=== PATIENT | female | born 2000 | race Caucasian/White ===

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

== ENCOUNTER → 2019-05-01 | Outpatient (REF) | payer OTHER ==
[2019-05-01 13:51] LABS: BASO % 0.8 % (0.0-1.0); EOS # 0.1 10^3/uL (0.0-0.5); EOS % 1.2 % (0.0-3.0); HEMATOCRIT 44.5 % (36.0-47.0); HEMOGLOBIN 14.7 g/dl (12.0-15.5); LYMPH # 1.3 10^3/uL (1.5-5.0); LYMPH % 26.2 % (24.0-44.0); MEAN CORPUSCULAR HEMOGLOBIN 31.5 pg (27.0-33.0); MEAN CORPUSCULAR VOLUME 95.5 fl (80.0-96.0); MONO # 0.4 10^3/uL (0.0-0.8); MONO % 8.2 % (0.0-5.0); NEUTROPHILS # 3.1 10^3/uL (1.5-8.5); NEUTROPHILS % 63.4 % (36.0-66.0); PLATELET COUNT, AUTOMATED 272 10^3/uL (150-450); RED BLOOD COUNT 4.66 10^6/uL (4.00-5.40); WHITE BLOOD COUNT 4.9 10^3/uL (4.0-10.0)
[2019-05-01 13:56] LABS: ALBUMIN 4.5 GM/DL (3.2-5.2); ALT/SGPT 17 U/L (12-78); BILIRUBIN,TOTAL 0.4 MG/DL (0.2-1.0); BLOOD UREA NITROGEN 15 MG/DL (7-18); C REACTIVE PROTEIN QUANTITATIV < 0.30 MG/DL (0.00-0.30); CALCIUM LEVEL 9.4 MG/DL (8.5-10.1); CARBON DIOXIDE LEVEL 30 MEQ/L (21-32); CHLORIDE LEVEL 105 MEQ/L (98-107); CREATININE FOR GFR 0.71 MG/DL (0.55-1.30); GLUCOSE, FASTING 89 MG/DL (70-100); POTASSIUM SERUM 4.2 MEQ/L (3.5-5.1); SODIUM LEVEL 139 MEQ/L (136-145); TOTAL PROTEIN 8.3 GM/DL (6.4-8.2)
[2019-05-01 14:04] LABS: THYROID PEROXIDASE ANTIBODY < 28.0 U/ML (<60.0)
[2019-05-01 14:17] LABS: ERYTHROCYTE SEDIMENTATION RATE 3 mm/hr (0-20)
[2019-05-01 18:44] LABS: TOTAL PROTEIN,RANDOM URINE 16.4 MG/DL (0.0-12.0)
== END ==
LOC: M SFHCRHEU 09:37
PROVIDERS: ATTEND Internal Medicine
DX: R76.8 Other specified abnormal immunological findings in serum (principal); I73.00 Raynaud's syndrome without gangrene; K90.0 Celiac disease

== ENCOUNTER → 2019-07-31 | Outpatient (REF) | payer OTHER | LOC: M LABDRWAD 16:56 | DX: K90.0 Celiac disease (principal) ==

== ENCOUNTER → 2020-11-20 | Outpatient (REF) | payer OTHER | LOC: M LAB REF 15:38 | PROVIDERS: ATTEND Physician Assistant | DX: R05.9 Cough, unspecified (principal) ==

== ENCOUNTER → 2021-01-30 | Outpatient (CLI) | payer BC, OTHER ==
--- NOTE | 2021-01-30 09:04 | PFTRPT ---
Height: 73.00 Inches Weight: 160.00 Lbs BSA: 1.96 Diagnosis: I73.00 DATE: 01/30/2021 ORDERING PHYSICIAN: Corina Marcus MD Pre and post bronchodilator studies have excellent technical quality. Forced vital capacity is normal. FEV1 is in proportion. Obstructive index is therefore normal. Expiratory limit of the flow-volume loop is normal. No significant bronchodilator response is identified. Total lung capacity is normal. Residual volume is in proportion. Diffusing capacity is normal. No hemoglobin available for correction. Airway resistance and conductance are normal. IMPRESSION: Normal study. MTDD
== END ==
LOC: M CARPUL 08:36
PROVIDERS: ATTEND Internal Medicine Rheumatology
DX: R76.8 Other specified abnormal immunological findings in serum (principal)

== ENCOUNTER → 2021-06-27 | Outpatient (REF) | payer OTHER ==
[2021-06-27 12:18] LABS: APPEARANCE, URINE CLEAR (CLEAR); BACTERIA, URINE AUTO NEGATIVE (NEGATIVE); BILIRUBIN, URINE AUTO NEGATIVE (NEGATIVE); BLOOD, URINE BLOOD NEGATIVE (NEGATIVE); COLOR, URINE STRAW (YELLOW); GLUCOSE, URINE (UA) AUTO NEGATIVE (NEGATIVE); KETONE, URINE AUTO NEGATIVE (NEGATIVE); LEUKOCYTE ESTERASE, URINE AUTO NEGATIVE (NEGATIVE); NITRITE, URINE AUTO NEGATIVE (NEGATIVE); PROTEIN, URINE AUTO NEGATIVE (NEGATIVE); RBC, URINE AUTO 0 /HPF (0-3); SPECIFIC GRAVITY URINE AUTO 1.003 (1.002-1.035); SQUAMOUS EPITHELIAL CELL UR AU 0 /HPF (0-6); UROBILINOGEN, URINE AUTO 0.2 mg/dL (0.0-2.0); WBC, URINE AUTO 0 /HPF (0-3)
[2021-06-27 12:21] LABS: BASO % 0.7 % (0.0-1.0); EOS # 0.1 10^3/uL (0.0-0.5); HEMATOCRIT 42.6 % (36.0-47.0); HEMOGLOBIN 14.5 g/dl (12.0-15.5); LYMPH # 1.3 10^3/uL (1.5-5.0); LYMPH % 21.7 % (24.0-44.0); MEAN CORPUSCULAR HEMOGLOBIN 32.7 pg (27.0-33.0); MEAN CORPUSCULAR VOLUME 95.9 fl (80.0-96.0); MONO # 0.7 10^3/uL (0.0-0.8); NEUTROPHILS % 65.4 % (36.0-66.0); PLATELET COUNT, AUTOMATED 330 10^3/uL (150-450); RED BLOOD COUNT 4.44 10^6/uL (4.00-5.40); WHITE BLOOD COUNT 6.1 10^3/uL (4.0-10.0)
[2021-06-27 12:43] LABS: ERYTHROCYTE SEDIMENTATION RATE 2 mm/hr (0-20)
[2021-06-27 12:49] LABS: CREATININE,RANDOM URINE 23.1 MG/DL; TOTAL PROTEIN,RANDOM URINE < 5.0 MG/DL (0.0-12.0)
[2021-06-27 12:52] LABS: ALBUMIN 4.9 GM/DL (3.2-5.2); ALT/SGPT 21 U/L (12-78); BLOOD UREA NITROGEN 11 MG/DL (7-18); CALCIUM LEVEL 10.2 MG/DL (8.5-10.1); CARBON DIOXIDE LEVEL 28 MEQ/L (21-32); CHLORIDE LEVEL 102 MEQ/L (98-107); COMPLEMENT C3 117 MG/DL (90-180); COMPLEMENT C4 20 MG/DL (10-40); CREATININE FOR GFR 0.74 MG/DL (0.55-1.30); GLOMERULAR FILTRATION RATE > 60.0 (>60); GLUCOSE, FASTING 89 MG/DL (70-100); SODIUM LEVEL 138 MEQ/L (136-145); TOTAL PROTEIN 8.9 GM/DL (6.4-8.2)
== END ==
LOC: M SFHCRHEU 10:46
PROVIDERS: ATTEND Internal Medicine Rheumatology
DX: I73.00 Raynaud's syndrome without gangrene (principal); R76.8 Other specified abnormal immunological findings in serum; K90.0 Celiac disease; R29.91 Unspecified symptoms and signs involving the musculoskeletal system

== ENCOUNTER → 2022-04-03 | Outpatient (REF) | payer OTHER ==
[2022-04-03 16:07] LABS: BASO # 0.1 10^3/uL (0.0-0.2); BASO % 0.6 % (0.0-1.0); EOS % 0.4 % (0.0-3.0); HEMATOCRIT 41.5 % (36.0-47.0); HEMOGLOBIN 13.6 g/dl (12.0-15.5); LYMPH # 1.4 10^3/uL (1.5-5.0); LYMPH % 13.4 % (24.0-44.0); MEAN CORPUSCULAR HEMOGLOBIN 32.2 pg (27.0-33.0); MEAN CORPUSCULAR HGB CONC 32.8 g/dl (32.0-36.5); MEAN CORPUSCULAR VOLUME 98.1 fl (80.0-96.0); MONO # 0.9 10^3/uL (0.0-0.8); MONO % 8.4 % (2.0-8.0); NEUTROPHILS # 8.2 10^3/uL (1.5-8.5); NEUTROPHILS % 76.8 % (36.0-66.0); PLATELET COUNT, AUTOMATED 343 10^3/uL (150-450); RED BLOOD COUNT 4.23 10^6/uL (4.00-5.40); WHITE BLOOD COUNT 10.7 10^3/uL (4.0-10.0)
[2022-04-03 16:13] LABS: APPEARANCE, URINE CLEAR (CLEAR); BACTERIA, URINE AUTO NEGATIVE (NEGATIVE); BILIRUBIN, URINE AUTO NEGATIVE (NEGATIVE); BLOOD, URINE BLOOD NEGATIVE (NEGATIVE); COLOR, URINE YELLOW (YELLOW); ERYTHROCYTE SEDIMENTATION RATE 7 mm/hr (0-20); GLUCOSE, URINE (UA) AUTO NEGATIVE (NEGATIVE); KETONE, URINE AUTO NEGATIVE (NEGATIVE); LEUKOCYTE ESTERASE, URINE AUTO NEGATIVE (NEGATIVE); NITRITE, URINE AUTO NEGATIVE (NEGATIVE); PROTEIN, URINE AUTO NEGATIVE (NEGATIVE); RBC, URINE AUTO 3 /HPF (0-3); SPECIFIC GRAVITY URINE AUTO 1.023 (1.002-1.035); SQUAMOUS EPITHELIAL CELL UR AU 0 /HPF (0-6); UROBILINOGEN, URINE AUTO 0.2 mg/dL (0.0-2.0); WBC, URINE AUTO 0 /HPF (0-3)
[2022-04-03 16:36] LABS: TOTAL PROTEIN,RANDOM URINE 22.8 MG/DL (0.0-14.0)
[2022-04-03 16:41] LABS: ALBUMIN 4.6 G/DL (3.2-5.2); ALKALINE PHOSPHATASE 53 U/L (46-116); ALT/SGPT 17 U/L (7.0-40); AST/SGOT 22 U/L (<34); BILIRUBIN,TOTAL 0.5 MG/DL (0.3-1.2); BLOOD UREA NITROGEN 17 MG/DL (9-23); C REACTIVE PROTEIN QUANTITATIV < 0.40 MG/DL (<1.0); CALCIUM LEVEL 9.7 MG/DL (8.5-10.1); CARBON DIOXIDE LEVEL 29 MMOL/L (20-31); CHLORIDE LEVEL 100 MMOL/L (98-107); CREATININE FOR GFR 0.56 MG/DL (0.55-1.30); CREATININE,RANDOM URINE 99.3 MG/DL; GLOMERULAR FILTRATION RATE > 60.0 (>60); GLUCOSE, FASTING 78 MG/DL (60-100); POTASSIUM SERUM 4.4 MMOL/L (3.5-5.1); SODIUM LEVEL 136 MMOL/L (136-145); TOTAL PROTEIN 7.6 G/DL (5.7-8.2)
[2022-04-03 16:42] LABS: COMPLEMENT C3 126.6 MG/DL (82.0-160.0)
== END ==
LOC: M SFHCRHEU 10:35
PROVIDERS: ATTEND Internal Medicine Rheumatology
DX: I73.00 Raynaud's syndrome without gangrene (principal); R76.8 Other specified abnormal immunological findings in serum; K90.0 Celiac disease; R29.91 Unspecified symptoms and signs involving the musculoskeletal system

== ENCOUNTER 2023-11-23 08:37 | Inpatient (IN) | payer BC, OTHER ==
[~2023-11-23] VITALS: Ht 188 cm; Wt 86.0 kg
[2023-11-23 10:11] LABS: BASO % 0.4 % (0.0-1.0); EOS # 0.1 10^3/uL (0.0-0.5); EOS % 0.5 % (0.0-3.0); HEMATOCRIT 41.6 % (36.0-47.0); HEMOGLOBIN 14.5 g/dl (12.0-15.5); LYMPH % 10.1 % (24.0-44.0); MEAN CORPUSCULAR HEMOGLOBIN 34.9 pg (27.0-33.0); MEAN CORPUSCULAR HGB CONC 34.9 g/dl (32.0-36.5); MONO % 10.3 % (2.0-8.0); NEUTROPHILS # 7.6 10^3/uL (1.5-8.5); NEUTROPHILS % 78.2 % (36.0-66.0); PLATELET COUNT, AUTOMATED 371 10^3/uL (150-450); RED BLOOD COUNT 4.16 10^6/uL (4.00-5.40); WHITE BLOOD COUNT 9.7 10^3/uL (4.0-10.0)
[2023-11-23 10:41] LABS: ALKALINE PHOSPHATASE 81 U/L (46-116); ALT/SGPT 104 U/L (7.0-40); AST/SGOT 108 U/L (<34); BILIRUBIN,DIRECT 0.4 MG/DL (<0.4); BLOOD UREA NITROGEN 7 MG/DL (9-23); CARBON DIOXIDE LEVEL 26 MMOL/L (20-31); CHLORIDE LEVEL 102 MMOL/L (98-107); CREATININE FOR GFR 0.52 MG/DL (0.55-1.30); GLOMERULAR FILTRATION RATE > 60.0 (>60); GLUCOSE, FASTING 104 MG/DL (60-100); POTASSIUM SERUM 4.2 MMOL/L (3.5-5.1); SODIUM LEVEL 135 MMOL/L (136-145); TOTAL PROTEIN 7.9 G/DL (5.7-8.2)
[2023-11-23 10:43] LABS: CPK CREATINE PHOSPHOKINASE 57 U/L (34-145)
[2023-11-23 10:46] LABS: HCG, SERUM QUALITATIVE NEGATIVE (NEGATIVE)
[2023-11-23] MEDS ORDERED: PANT40TA29 PO (14:37)
[2023-11-23] MEDS ORDERED: ALBU2.5V10 INH (14:37)
[2023-11-23] MEDS ORDERED: ALPR0.5T3 PO (14:42)
[2023-11-23] MEDS ORDERED: ADDE10TA PO (14:42)
[2023-11-23] MEDS ORDERED: BUSP10TA PO (14:42)
[2023-11-23] MEDS ORDERED: ESCI5SOL3 PO (14:43)
[2023-11-23] MEDS ORDERED: HYDR-3363 PO (14:44)
[2023-11-23] MEDS ORDERED: HOME MED LIST COMPLETE! XX SCH (14:45)
[2023-11-23] MEDS: ALPRAZolam 0.25 MG TAB PO ONE (15:20)
[2023-11-23 15:22] LABS: INR 1.06; PARTIAL THROMBOPLASTIN TIME 34.6 SECONDS (24.8-34.2); PROTHROMBIN TIME 13.5 SECONDS (12.5-14.5)
[2023-11-23 16:05] LABS: VITAMIN B12 LEVEL 539 PG/ML (211-911)
[2023-11-23 16:06] LABS: FOLATE 11.2 NG/ML (>5.4)
[2023-11-23 16:10] LABS: ERYTHROCYTE SEDIMENTATION RATE 46 mm/hr (0-20)
[2023-11-23] MEDS: NS 1,000 ML IV ONE (16:31)
[2023-11-23 16:58] LABS: HEMATOCRIT 40.7 % (36.0-47.0)
[2023-11-23] MEDS ORDERED: ACETAMINOPHEN TAB 650MG DOSE (2X325MG) PO PRN (17:15)
[2023-11-23] MEDS: ALPRAZolam 0.25 MG TAB PO PRN (17:39)
[2023-11-23 17:48] LABS: APPEARANCE, CSF CLEAR (CLEAR); COLOR, CSF COLORLESS (COLORLESS); CSF TUBE# CELL CNT TUBE 4
[2023-11-23 17:49] LABS: APPEARANCE, CSF CLEAR (CLEAR); COLOR, CSF COLORLESS (COLORLESS); CSF TUBE# CELL CNT TUBE 1
[2023-11-23] MEDS ORDERED: PROHANCE 279.3MG/ML 15ML VIAL As Ordered ONE (18:34)
[2023-11-23] MEDS ORDERED: PROHANCE 279.3MG/ML 5ML VIAL As Ordered ONE (18:34)
[2023-11-23 18:57] LABS: CSF TUBE# TP TUBE 2; TOTAL PROTEIN,CSF 36.6 MG/DL (15-45)
[2023-11-23 19:00] LABS: CSF TUBE# GLU TUBE 2
[2023-11-23 19:17] VITALS: BP 135/97; TEMP 97.7; O2SAT 99
[2023-11-23] MEDS: NS 1,000 ML IV SCH (19:24)
[2023-11-23 21:19] VITALS: BP 126/94; TEMP 98.6; O2SAT 97
[2023-11-23 22:05] VITALS: BP 120/85; O2SAT 96
[2023-11-23] MEDS: IMMUNE GLOBULIN 10% 5 GM in IV 1 EA IV SCH (22:27)
[2023-11-23 23:00] VITALS: BP 142/96; O2SAT 97
[2023-11-23] MEDS: IMMUNE GLOBULIN 10% 10 GM in IV 1 EA IV SCH (23:45)
[2023-11-24] VITALS (10 sets, daily range): BP systolic 114–138; BP diastolic 75–100; TEMP 97.7–99; O2SAT 96–100
[2023-11-24] MEDS: IMMUNE GLOBULIN 10% 20 GM in IV 1 EA IV SCH (01:18)
[2023-11-24 04:57] LABS: BASO % 0.6 % (0.0-1.0); EOS # 0.1 10^3/uL (0.0-0.5); LYMPH % 18.3 % (24.0-44.0); MEAN CORPUSCULAR HEMOGLOBIN 34.9 pg (27.0-33.0); MEAN CORPUSCULAR HGB CONC 34.8 g/dl (32.0-36.5); MEAN CORPUSCULAR VOLUME 100.3 fl (80.0-96.0); MONO # 0.7 10^3/uL (0.0-0.8); MONO % 13.4 % (2.0-8.0); NEUTROPHILS # 3.6 10^3/uL (1.5-8.5); NEUTROPHILS % 65.1 % (36.0-66.0); PLATELET COUNT, AUTOMATED 300 10^3/uL (150-450); WHITE BLOOD COUNT 5.5 10^3/uL (4.0-10.0)
[2023-11-24 05:04] LABS: HEMATOCRIT 35.1 % (36.0-47.0); HEMOGLOBIN 12.2 g/dl (12.0-15.5)
[2023-11-24 05:32] LABS: HEPATITIS B SURFACE ANTIGEN NEGATIVE (NEGATIVE)
[2023-11-24 05:52] LABS: HEPATITIS B CORE ANTIBODY IGM NEGATIVE (NEGATIVE); HEPATITIS C VIRUS ABY INDEX 0.06 INDEX (<0.8)
[2023-11-24 05:54] LABS: ALBUMIN 3.1 G/DL (3.2-5.2); ALKALINE PHOSPHATASE 60 U/L (46-116); ALT/SGPT 77 U/L (7.0-40); AST/SGOT 58 U/L (<34); BILIRUBIN,TOTAL 1.1 MG/DL (0.3-1.2); BLOOD UREA NITROGEN 7 MG/DL (9-23); CALCIUM LEVEL 9.2 MG/DL (8.5-10.1); CARBON DIOXIDE LEVEL 26 MMOL/L (20-31); CHLORIDE LEVEL 104 MMOL/L (98-107); CHOLESTEROL LEVEL 171 MG/DL (<200); CHOLESTEROL RISK RATIO 5.31 (<5); CREATININE FOR GFR 0.54 MG/DL (0.55-1.30); GLOMERULAR FILTRATION RATE > 60.0 (>60); GLUCOSE, FASTING 108 MG/DL (60-100); HDL CHOLESTEROL 32.2 MG/DL (>40); LDL CHOLESTEROL 117.4 MG/DL (<100); NON-HDL-C 138.8 MG/DL; SODIUM LEVEL 136 MMOL/L (136-145); TOTAL PROTEIN 7.3 G/DL (5.7-8.2); TRIGLYCERIDES LEVEL 107 MG/DL (<150)
[2023-11-24 05:56] LABS: HEMOGLOBIN A1c 5.2 % (4.0-6.0)
[2023-11-24] MEDS: diazePAM 5MG TABLET PO ONE ×2 (08:25→08:36)
[2023-11-24] MEDS ORDERED: LEXA1TAB PO (09:30)
[2023-11-24] MEDS: ESCITALOPRAM OXALATE 10 MG TAB (LEXAPRO) PO SCH (10:18)
[2023-11-24] MEDS: busPIRone 10 MG TAB PO SCH (12:26)
[2023-11-24] MEDS: ENOXAPARIN 40MG/0.4ML SYRINGE (J1650 PER 10MG) SC SCH (12:54)
[2023-11-24 13:07] LABS: PHOSPHORUS LEVEL 4.5 MG/DL (2.5-4.9)
[2023-11-24] MEDS: ALPRAZolam 0.5 MG TAB PO PRN (22:44)
[2023-11-24] MEDS: ACETAMINOPHEN 325 MG TAB PO PRN (22:46)
[2023-11-25] VITALS (7 sets, daily range): BP systolic 116–140; BP diastolic 78–102; TEMP 97.6–98.3; O2SAT 94–99
[2023-11-25 06:33] LABS: ALBUMIN 3.1 G/DL (3.2-5.2); ALKALINE PHOSPHATASE 59 U/L (46-116); ALT/SGPT 74 U/L (7.0-40); AST/SGOT 55 U/L (<34); BILIRUBIN,TOTAL 0.9 MG/DL (0.3-1.2); BLOOD UREA NITROGEN 7 MG/DL (9-23); CALCIUM LEVEL 9.3 MG/DL (8.5-10.1); CARBON DIOXIDE LEVEL 24 MMOL/L (20-31); CHLORIDE LEVEL 105 MMOL/L (98-107); CREATININE FOR GFR 0.49 MG/DL (0.55-1.30); GLOMERULAR FILTRATION RATE > 60.0 (>60); GLUCOSE, FASTING 106 MG/DL (60-100); MAGNESIUM LEVEL 2.1 MG/DL (1.8-2.4); POTASSIUM SERUM 3.9 MMOL/L (3.5-5.1); SODIUM LEVEL 135 MMOL/L (136-145); TOTAL PROTEIN 8.3 G/DL (5.7-8.2)
[2023-11-25] MEDS: KETOROLAC 30 MG/ML 1ML VIAL IV ONE (09:29)
[2023-11-25 10:52] LABS: PROTEIN, TOTAL SO 7.5 g/dL (6.1-8.1)
[2023-11-25] MEDS: ACETAMINOPHEN 325 MG TAB PO PRN (13:53)
[2023-11-25] MEDS: IBUPROFEN 400MG TAB PO PRN (17:51)
[2023-11-26] VITALS (7 sets, daily range): BP systolic 118–137; BP diastolic 74–100; TEMP 97.3–98.8; O2SAT 96–98
[2023-11-26 05:39] LABS: BASO % 0.4 % (0.0-1.0); EOS % 0.6 % (0.0-3.0); HEMATOCRIT 35.5 % (36.0-47.0); HEMOGLOBIN 12.4 g/dl (12.0-15.5); LYMPH # 0.8 10^3/uL (1.5-5.0); LYMPH % 16.6 % (24.0-44.0); MEAN CORPUSCULAR HEMOGLOBIN 34.5 pg (27.0-33.0); MEAN CORPUSCULAR HGB CONC 34.9 g/dl (32.0-36.5); MEAN CORPUSCULAR VOLUME 98.9 fl (80.0-96.0); MONO # 0.7 10^3/uL (0.0-0.8); MONO % 15.4 % (2.0-8.0); NEUTROPHILS # 3.2 10^3/uL (1.5-8.5); NEUTROPHILS % 66.8 % (36.0-66.0); PLATELET COUNT, AUTOMATED 297 10^3/uL (150-450); RED BLOOD COUNT 3.59 10^6/uL (4.00-5.40); WHITE BLOOD COUNT 4.8 10^3/uL (4.0-10.0)
[2023-11-26 06:03] LABS: ALBUMIN 3.1 G/DL (3.2-5.2); ALKALINE PHOSPHATASE 57 U/L (46-116); ALT/SGPT 67 U/L (7.0-40); AST/SGOT 50 U/L (<34); BILIRUBIN,TOTAL 0.7 MG/DL (0.3-1.2); BLOOD UREA NITROGEN 6 MG/DL (9-23); CALCIUM LEVEL 9.5 MG/DL (8.5-10.1); CARBON DIOXIDE LEVEL 24 MMOL/L (20-31); CHLORIDE LEVEL 104 MMOL/L (98-107); CREATININE FOR GFR 0.49 MG/DL (0.55-1.30); GLOMERULAR FILTRATION RATE > 60.0 (>60); GLUCOSE, FASTING 108 MG/DL (60-100); MAGNESIUM LEVEL 2.1 MG/DL (1.8-2.4); PHOSPHORUS LEVEL 4.5 MG/DL (2.5-4.9); POTASSIUM SERUM 4.1 MMOL/L (3.5-5.1); SODIUM LEVEL 133 MMOL/L (136-145); TOTAL PROTEIN 8.9 G/DL (5.7-8.2)
[2023-11-26 09:45] LABS: RNP ANTIBODY <1.0 NEG AI (<1.0 NEG); SM ANTIBODY <1.0 NEG AI (<1.0 NEG)
[2023-11-26 14:09] LABS: ANA PATTERN Nuclear, Speckled (NEGATIVE); ANA SCREEN, IFA POSITIVE (NEGATIVE)
[2023-11-27] VITALS (7 sets, daily range): BP systolic 120–135; BP diastolic 89–95; TEMP 97–97.7; O2SAT 92–99
[2023-11-27 05:16] LABS: BASO % 0.6 % (0.0-1.0); EOS % 0.6 % (0.0-3.0); HEMATOCRIT 36.8 % (36.0-47.0); HEMOGLOBIN 12.8 g/dl (12.0-15.5); LYMPH # 0.8 10^3/uL (1.5-5.0); LYMPH % 18.1 % (24.0-44.0); MEAN CORPUSCULAR HEMOGLOBIN 35.1 pg (27.0-33.0); MEAN CORPUSCULAR HGB CONC 34.8 g/dl (32.0-36.5); MEAN CORPUSCULAR VOLUME 100.8 fl (80.0-96.0); MONO # 0.8 10^3/uL (0.0-0.8); MONO % 17.6 % (2.0-8.0); NEUTROPHILS # 2.9 10^3/uL (1.5-8.5); NEUTROPHILS % 62.7 % (36.0-66.0); PLATELET COUNT, AUTOMATED 290 10^3/uL (150-450); RED BLOOD COUNT 3.65 10^6/uL (4.00-5.40); WHITE BLOOD COUNT 4.7 10^3/uL (4.0-10.0)
[2023-11-27 05:54] LABS: ALBUMIN 3.2 G/DL (3.2-5.2); ALKALINE PHOSPHATASE 55 U/L (46-116); ALT/SGPT 62 U/L (7.0-40); AST/SGOT 46 U/L (<34); BILIRUBIN,TOTAL 0.7 MG/DL (0.3-1.2); BLOOD UREA NITROGEN 7 MG/DL (9-23); CALCIUM LEVEL 9.5 MG/DL (8.5-10.1); CARBON DIOXIDE LEVEL 24 MMOL/L (20-31); CHLORIDE LEVEL 104 MMOL/L (98-107); CREATININE FOR GFR 0.49 MG/DL (0.55-1.30); GLOMERULAR FILTRATION RATE > 60.0 (>60); GLUCOSE, FASTING 111 MG/DL (60-100); POTASSIUM SERUM 3.9 MMOL/L (3.5-5.1); SODIUM LEVEL 132 MMOL/L (136-145); TOTAL PROTEIN 9.6 G/DL (5.7-8.2)
[2023-11-27 12:07] LABS: Methylmalonic Acid 97 nmol/L (55-335)
[2023-11-27 23:32] LABS: LYME TOTAL ANTIBODY CIA <= 0.90 Index (<=0.90)
[2023-11-28 03:30] VITALS: BP 135/95; TEMP 97.3; O2SAT 96
[2023-11-28 06:01] LABS: BASO % 0.7 % (0.0-1.0); EOS % 0.9 % (0.0-3.0); HEMATOCRIT 37.1 % (36.0-47.0); HEMOGLOBIN 13.1 g/dl (12.0-15.5); LYMPH # 0.9 10^3/uL (1.5-5.0); LYMPH % 19.4 % (24.0-44.0); MEAN CORPUSCULAR HEMOGLOBIN 34.8 pg (27.0-33.0); MEAN CORPUSCULAR HGB CONC 35.3 g/dl (32.0-36.5); MEAN CORPUSCULAR VOLUME 98.7 fl (80.0-96.0); MONO % 21.1 % (2.0-8.0); NEUTROPHILS # 2.6 10^3/uL (1.5-8.5); NEUTROPHILS % 57.5 % (36.0-66.0); PLATELET COUNT, AUTOMATED 307 10^3/uL (150-450); RED BLOOD COUNT 3.76 10^6/uL (4.00-5.40); WHITE BLOOD COUNT 4.5 10^3/uL (4.0-10.0)
[2023-11-28 06:34] LABS: ALBUMIN 3.2 G/DL (3.2-5.2); ALKALINE PHOSPHATASE 54 U/L (46-116); ALT/SGPT 84 U/L (7.0-40); AST/SGOT 80 U/L (<34); BILIRUBIN,TOTAL 0.8 MG/DL (0.3-1.2); BLOOD UREA NITROGEN 9 MG/DL (9-23); CALCIUM LEVEL 9.9 MG/DL (8.5-10.1); CARBON DIOXIDE LEVEL 25 MMOL/L (20-31); CHLORIDE LEVEL 101 MMOL/L (98-107); CREATININE FOR GFR 0.49 MG/DL (0.55-1.30); GLOMERULAR FILTRATION RATE > 60.0 (>60); GLUCOSE, FASTING 114 MG/DL (60-100); MAGNESIUM LEVEL 2.1 MG/DL (1.8-2.4); POTASSIUM SERUM 4.2 MMOL/L (3.5-5.1); SODIUM LEVEL 131 MMOL/L (136-145); TOTAL PROTEIN 10.5 G/DL (5.7-8.2)
[2023-11-28 08:00] VITALS: BP 132/89; TEMP 97.3; O2SAT 98
[2023-11-28 12:00] VITALS: BP 133/91; TEMP 97.3; O2SAT 99
[2023-11-28 16:00] VITALS: BP 137/95; TEMP 97.3; O2SAT 99
[2023-11-28 19:04] VITALS: BP 136/97; TEMP 98.3; O2SAT 98
[2023-11-28 20:00] VITALS: BP 136/94; TEMP 98.1; O2SAT 98
[2023-11-29 00:32] LABS: ANCA SCREEN Negative (Negative)
[2023-11-29 04:00] VITALS: BP 135/92; TEMP 97.3; O2SAT 98
[2023-11-29 06:07] LABS: ALBUMIN SO 4.3 g/dL (3.8-4.8); ALPHA 1 GLOBULINS SO 0.3 g/dL (0.2-0.3); ALPHA 2 GLOBULINS SO 0.9 g/dL (0.5-0.9); BETA 2 GLOBULIN SO 0.5 g/dL (0.2-0.5); BETA GLOBULIN SO 0.5 g/dL (0.4-0.6); GAMMA GLOBULINS SO 0.9 g/dL (0.8-1.7)
[2023-11-29 06:33] LABS: BASO % 0.6 % (0.0-1.0); EOS % 0.4 % (0.0-3.0); HEMATOCRIT 37.8 % (36.0-47.0); HEMOGLOBIN 13.3 g/dl (12.0-15.5); LYMPH # 0.9 10^3/uL (1.5-5.0); MEAN CORPUSCULAR HEMOGLOBIN 34.5 pg (27.0-33.0); MEAN CORPUSCULAR HGB CONC 35.2 g/dl (32.0-36.5); MEAN CORPUSCULAR VOLUME 98.2 fl (80.0-96.0); MONO % 18.3 % (2.0-8.0); NEUTROPHILS # 3.3 10^3/uL (1.5-8.5); NEUTROPHILS % 63.3 % (36.0-66.0); PLATELET COUNT, AUTOMATED 291 10^3/uL (150-450); RED BLOOD COUNT 3.85 10^6/uL (4.00-5.40); WHITE BLOOD COUNT 5.2 10^3/uL (4.0-10.0)
[2023-11-29 06:51] LABS: ALBUMIN 3.1 G/DL (3.2-5.2); ALKALINE PHOSPHATASE 53 U/L (46-116); ALT/SGPT 88 U/L (7.0-40); AST/SGOT 76 U/L (<34); BLOOD UREA NITROGEN 9 MG/DL (9-23); CALCIUM LEVEL 10.2 MG/DL (8.5-10.1); CARBON DIOXIDE LEVEL 24 MMOL/L (20-31); CHLORIDE LEVEL 102 MMOL/L (98-107); CREATININE FOR GFR 0.44 MG/DL (0.55-1.30); GLOMERULAR FILTRATION RATE > 60.0 (>60); GLUCOSE, FASTING 121 MG/DL (60-100); POTASSIUM SERUM 3.9 MMOL/L (3.5-5.1); SODIUM LEVEL 133 MMOL/L (136-145); TOTAL PROTEIN 9.6 G/DL (5.7-8.2)
[2023-11-29 10:07] LABS: LYME PCR FOR BODY FLUID Negative (Negative)
[2023-11-29 12:00] VITALS: BP 138/93; TEMP 97.2; O2SAT 97
[2023-11-29] MEDS: MIRALAX *UNIT DOSE* 17GM PACKET PO SCH (15:19)
[2023-11-29] MEDS: SENOKOT S TAB PO SCH (20:32)
[2023-11-29 21:20] VITALS: BP 135/92; TEMP 97.3; O2SAT 96
[2023-11-30 04:39] VITALS: BP 133/93; TEMP 97.3; O2SAT 97
[2023-11-30 05:58] LABS: BASO % 0.7 % (0.0-1.0); EOS % 0.9 % (0.0-3.0); HEMATOCRIT 36.2 % (36.0-47.0); HEMOGLOBIN 12.8 g/dl (12.0-15.5); LYMPH # 1.2 10^3/uL (1.5-5.0); LYMPH % 26.7 % (24.0-44.0); MEAN CORPUSCULAR HGB CONC 35.4 g/dl (32.0-36.5); MONO # 0.9 10^3/uL (0.0-0.8); MONO % 21.6 % (2.0-8.0); NEUTROPHILS # 2.1 10^3/uL (1.5-8.5); NEUTROPHILS % 49.9 % (36.0-66.0); PLATELET COUNT, AUTOMATED 302 10^3/uL (150-450); RED BLOOD COUNT 3.77 10^6/uL (4.00-5.40); WHITE BLOOD COUNT 4.3 10^3/uL (4.0-10.0)
[2023-11-30 06:25] LABS: ALBUMIN 3.3 G/DL (3.2-5.2); ALKALINE PHOSPHATASE 54 U/L (46-116); ALT/SGPT 80 U/L (7.0-40); AST/SGOT 57 U/L (<34); BILIRUBIN,TOTAL 1.2 MG/DL (0.3-1.2); BLOOD UREA NITROGEN 13 MG/DL (9-23); CALCIUM LEVEL 9.8 MG/DL (8.5-10.1); CARBON DIOXIDE LEVEL 25 MMOL/L (20-31); CHLORIDE LEVEL 100 MMOL/L (98-107); CREATININE FOR GFR 0.45 MG/DL (0.55-1.30); GLOMERULAR FILTRATION RATE > 60.0 (>60); GLUCOSE, FASTING 112 MG/DL (60-100); MAGNESIUM LEVEL 2.1 MG/DL (1.8-2.4); POTASSIUM SERUM 3.9 MMOL/L (3.5-5.1); SODIUM LEVEL 130 MMOL/L (136-145); TOTAL PROTEIN 9.6 G/DL (5.7-8.2)
[2023-11-30 12:00] VITALS: BP 128/92; TEMP 97.3; O2SAT 93
[2023-11-30] MEDS ORDERED: IBUP-1114 PO (12:20)
[2023-11-30 20:35] VITALS: BP 128/92; TEMP 97.5; O2SAT 97
[2023-12-01 01:58] LABS: ANTI DS-DNA AB NEGATIVE (NEGATIVE)
[2023-12-01 04:00] VITALS: BP 133/93; TEMP 97.3; O2SAT 94
[2023-12-01 12:00] VITALS: BP 134/95; O2SAT 98
[2023-12-01] MEDS: PANTOPRAZOLE 40MG VIAL IV SCH (13:24)
[2023-12-01] MEDS: ONDANSETRON 4MG 2ML VIAL IV PRN (13:24)
[2023-12-01 20:00] VITALS: BP 118/76; TEMP 97.3; O2SAT 97
[2023-12-01 23:47] LABS: CSF LYME DISEASE AB IGG NO BANDS DETECTED (NO BANDS); CSF LYME DISEASE AB IGM NO BANDS DETECTED (NO BANDS)
[2023-12-02 04:00] VITALS: BP 107/77; TEMP 97.2; O2SAT 94
[2023-12-02 12:15] VITALS: BP 118/73; TEMP 97.3; O2SAT 98
[2023-12-02 21:20] VITALS: BP 126/85; TEMP 97.3; O2SAT 96
[2023-12-03 04:00] VITALS: BP 116/78; TEMP 97.2; O2SAT 98
[2023-12-03 08:31] VITALS: BP 118/74; TEMP 97.3
[2023-12-03] MEDS ORDERED: ACET32TAB PO (08:35)
[2023-12-03 11:08] VITALS: BP 116/74; TEMP 97.3
[2023-12-03] MEDS: ALPRAZolam 0.5 MG TAB PO ONE (12:09)
== END 2023-12-03 12:09 | disposition short-term general hospital (02) | DRG 49 ==
LOC: M ED 08:37 → M ED INP 14:10 → M PCU 16:44 → M ICU 21:14 → M MSPAV 11-26 16:44
PROVIDERS: ADMIT General Practice; ATTEND Internal Medicine Nephrology
PROC: 009U3ZX Drainage of Spinal Canal, Percutaneous Approach, Diagnostic (ICD-10-PCS; principal; 2023-11-23 15:00)
DX: G61.0 Guillain-Barre syndrome (principal); F41.9 Anxiety disorder, unspecified; F90.9 Attention-deficit hyperactivity disorder, unspecified type; I73.00 Raynaud's syndrome without gangrene; K90.0 Celiac disease; E87.1 Hypo-osmolality and hyponatremia; Z88.0 Allergy status to penicillin; Z88.8 Allergy status to other drugs, medicaments and biological substances; Z79.899 Other long term (current) drug therapy; R51.9 Headache, unspecified

== ENCOUNTER 2023-12-15 12:36 | Inpatient (IN) | payer BC ==
[~2023-12-15] VITALS: Ht 188 cm; Wt 77.0 kg
[~2023-12-15 12:36] MED LIST: ACET32TAB PO; ADDE10TA PO; ALBU2.5V10 INH; ALPR0.5T3 PO; BUSP10TA PO; ESCI5SOL3 PO; HYDR-3363 PO; IBUP-1114 PO; LEXA1TAB PO; PANT40TA29 PO
[2023-12-15] MEDS ORDERED: BISACODYL 10MG SUPP PR PRN (15:15)
[2023-12-15] MEDS ORDERED: CALCIUM CARBONATE 500 MG CHEW U/D PO PRN (15:15)
[2023-12-15] MEDS ORDERED: ALBUTEROL SULFATE 2.5MG/0.5ML INH NEB SOLN NEB PRN (15:15)
[2023-12-15] MEDS ORDERED: busPIRone 10 MG TAB PO SCH (16:00)
[2023-12-15 17:35] VITALS: BP 118/81; TEMP 97.5; O2SAT 95
[2023-12-15] MEDS ORDERED: ALPR0.25 PO (19:09)
[2023-12-15] MEDS ORDERED: GABA-1171 PO (19:09)
[2023-12-15] MEDS ORDERED: SENN-186 PO (19:09)
[2023-12-15] MEDS ORDERED: MELA3TAB30 PO (19:09)
[2023-12-15] MEDS ORDERED: COLA100C5 PO (19:09)
[2023-12-15] MEDS ORDERED: MIRA3350 PO (19:09)
[2023-12-15] MEDS ORDERED: CALC500T60 PO (19:09)
[2023-12-15] MEDS ORDERED: HOME MED LIST COMPLETE! XX SCH (19:10)
[2023-12-15 20:00] VITALS: BP 121/78; TEMP 97.9; O2SAT 97
[2023-12-15] MEDS: MIRALAX *UNIT DOSE* 17GM PACKET PO SCH (21:00)
[2023-12-15] MEDS: GABAPENTIN 100 MG CAP PO SCH (21:50)
[2023-12-16] MEDS: ACETAMINOPHEN 325 MG TAB PO PRN (00:41)
[2023-12-16] MEDS: RAMELTEON 8 MG TAB (ROZEREM) PO PRN (00:41)
[2023-12-16 04:00] VITALS: BP 119/82; TEMP 98.3; O2SAT 95
[2023-12-16 06:27] LABS: HEMATOCRIT 29.8 % (36.0-47.0); HEMOGLOBIN 10.3 g/dl (12.0-15.5); MEAN CORPUSCULAR HEMOGLOBIN 33.9 pg (27.0-33.0); MEAN CORPUSCULAR HGB CONC 34.6 g/dl (32.0-36.5); PLATELET COUNT, AUTOMATED 427 10^3/uL (150-450); RED BLOOD COUNT 3.04 10^6/uL (4.00-5.40); WHITE BLOOD COUNT 9.6 10^3/uL (4.0-10.0)
[2023-12-16 06:45] LABS: ALBUMIN 3.6 G/DL (3.2-5.2); ALKALINE PHOSPHATASE 62 U/L (35-104); ALT/SGPT 47 U/L (7.0-40); AST/SGOT 23 U/L (<34); BILIRUBIN,TOTAL 0.6 MG/DL (0.3-1.2); BLOOD UREA NITROGEN 12 MG/DL (9-23); CALCIUM LEVEL 10.1 MG/DL (8.5-10.1); CARBON DIOXIDE LEVEL 27 MMOL/L (20-31); CHLORIDE LEVEL 103 MMOL/L (98-107); CREATININE FOR GFR 0.38 MG/DL (0.55-1.30); GLOMERULAR FILTRATION RATE > 60.0 (>60); GLUCOSE, FASTING 107 MG/DL (60-100); POTASSIUM SERUM 4.2 MMOL/L (3.5-5.1); SODIUM LEVEL 140 MMOL/L (136-145); TOTAL PROTEIN 6.4 G/DL (5.7-8.2)
[2023-12-16] MEDS: PANTOPRAZOLE 40MG TAB (PROTONIX) PO SCH (08:28)
[2023-12-16] MEDS: ESCITALOPRAM OXALATE 10 MG TAB (LEXAPRO) PO SCH (08:28)
[2023-12-16] MEDS: ENOXAPARIN 40MG/0.4ML SYRINGE (J1650 PER 10MG) SC SCH (08:29)
[2023-12-16] MEDS: DOCUSATE SODIUM 100MG CAPSULE PO SCH (09:37)
[2023-12-16] MEDS: busPIRone 10 MG TAB PO SCH (09:49)
[2023-12-16 12:00] VITALS: BP 119/81; TEMP 97.6; O2SAT 98
[2023-12-16] MEDS: traMADol 50 MG TAB PO PRN (14:24)
[2023-12-16] MEDS: GABAPENTIN 300 MG CAP PO SCH (15:19)
[2023-12-16 20:25] VITALS: BP 126/71; TEMP 97.6; O2SAT 94
[2023-12-17 04:00] VITALS: BP 123/77; TEMP 97.6; O2SAT 93
[2023-12-17 12:00] VITALS: BP 102/73; TEMP 97.2; O2SAT 98
[2023-12-17 20:00] VITALS: BP 115/75; TEMP 98; O2SAT 97
[2023-12-18 04:00] VITALS: BP 112/83; TEMP 97; TEMP 99.6; O2SAT 97
[2023-12-18 12:00] VITALS: BP 114/84; TEMP 97.9; O2SAT 96
[2023-12-18 20:00] VITALS: BP 133/77; TEMP 98; O2SAT 96
[2023-12-18] MEDS: SENNA 8.6 MG TAB (SENOKOT) PO PRN (20:10)
[2023-12-19 04:00] VITALS: BP 129/83; TEMP 99.1; O2SAT 96
[2023-12-19 12:00] VITALS: BP 122/93; TEMP 98; O2SAT 97
[2023-12-19 20:04] VITALS: BP 126/86; TEMP 98.4; O2SAT 96
[2023-12-20 04:25] VITALS: BP 122/84; TEMP 97.3; O2SAT 96
[2023-12-20 12:00] VITALS: BP 124/88; TEMP 97.9; O2SAT 95
[2023-12-20 20:37] VITALS: BP 121/85; TEMP 98.1; O2SAT 96
[2023-12-20] MEDS: GABAPENTIN 100 MG CAP PO SCH (20:43)
[2023-12-20] MEDS: SENNA 8.6 MG TAB (SENOKOT) PO SCH (20:43)
[2023-12-20] MEDS: PREGABALIN 75 MG CAP(LYRICA) PO SCH (20:45)
[2023-12-21 04:51] VITALS: BP 131/73; TEMP 98.1; O2SAT 94
[2023-12-21 12:00] VITALS: BP 125/83; TEMP 97.6; O2SAT 97
[2023-12-21] MEDS: PREGABALIN 75 MG CAP(LYRICA) PO ONE (14:02)
[2023-12-21 19:45] VITALS: BP 123/82; TEMP 98.1; O2SAT 93
[2023-12-21] MEDS: PREGABALIN 75 MG CAP(LYRICA) PO SCH (20:13)
[2023-12-22 04:08] VITALS: BP 123/87; TEMP 97.4; O2SAT 96
[2023-12-22] MEDS: GABAPENTIN 100 MG CAP PO SCH (07:38)
[2023-12-22] MEDS: GABAPENTIN 300 MG CAP PO SCH (14:04)
[2023-12-22] MEDS: LIDOCAINE 5% (LIDODERM) PATCH TD SCH (17:28)
[2023-12-22 20:00] VITALS: BP 129/92; TEMP 97.8; O2SAT 96
[2023-12-23 04:00] VITALS: BP 133/95; TEMP 97.8; O2SAT 97
[2023-12-23 07:16] LABS: BASO % 0.6 % (0.0-1.0); EOS # 0.1 10^3/uL (0.0-0.5); EOS % 1.5 % (0.0-3.0); HEMATOCRIT 30.4 % (36.0-47.0); HEMOGLOBIN 10.2 g/dl (12.0-15.5); LYMPH # 1.5 10^3/uL (1.5-5.0); MEAN CORPUSCULAR HEMOGLOBIN 33.1 pg (27.0-33.0); MEAN CORPUSCULAR HGB CONC 33.6 g/dl (32.0-36.5); MEAN CORPUSCULAR VOLUME 98.7 fl (80.0-96.0); MONO # 0.7 10^3/uL (0.0-0.8); MONO % 10.4 % (2.0-8.0); NEUTROPHILS # 4.5 10^3/uL (1.5-8.5); NEUTROPHILS % 65.1 % (36.0-66.0); PLATELET COUNT, AUTOMATED 443 10^3/uL (150-450); RED BLOOD COUNT 3.08 10^6/uL (4.00-5.40); WHITE BLOOD COUNT 6.8 10^3/uL (4.0-10.0)
[2023-12-23 07:41] LABS: BLOOD UREA NITROGEN 9 MG/DL (9-23); CALCIUM LEVEL 9.7 MG/DL (8.5-10.1); CARBON DIOXIDE LEVEL 29 MMOL/L (20-31); CHLORIDE LEVEL 105 MMOL/L (98-107); CREATININE FOR GFR 0.45 MG/DL (0.55-1.30); GLOMERULAR FILTRATION RATE > 60.0 (>60); GLUCOSE, FASTING 105 MG/DL (60-100); POTASSIUM SERUM 3.9 MMOL/L (3.5-5.1); SODIUM LEVEL 141 MMOL/L (136-145)
[2023-12-23 12:00] VITALS: BP 113/79; TEMP 97.5; O2SAT 98
[2023-12-23] MEDS: ONDANSETRON 4MG TAB PO PRN (13:53)
[2023-12-23 16:05] LABS: FREE T3 4.2 PG/ML (2.3-4.2)
[2023-12-23 16:06] LABS: FREE T4 1.3 NG/DL (0.89-1.76); THYROID STIMULATING HORMONE 3.339 uIU/ML (0.55-4.78)
[2023-12-23] MEDS: ALPRAZolam 0.25 MG TAB PO PRN (18:50)
[2023-12-23 20:00] VITALS: BP 127/83; TEMP 97.6; O2SAT 98
[2023-12-24 04:00] VITALS: BP 136/87; TEMP 98.5; O2SAT 95
[2023-12-24] MEDS: GABAPENTIN 300 MG CAP PO ONE (10:25)
[2023-12-24 12:00] VITALS: BP 129/93; TEMP 97.9; O2SAT 97
[2023-12-24] MEDS: GABAPENTIN 300 MG CAP PO SCH (15:55)
[2023-12-24 20:45] VITALS: BP 127/82; TEMP 97.6; O2SAT 93
[2023-12-25 04:00] VITALS: BP 120/86; TEMP 98.1; O2SAT 94
[2023-12-25 12:00] VITALS: BP 113/80; TEMP 97.4; O2SAT 100
[2023-12-25 19:41] VITALS: BP 128/80; TEMP 97.6; O2SAT 97
[2023-12-26 04:53] VITALS: BP 133/84; TEMP 97.6; O2SAT 94
[2023-12-26] MEDS: ADDERALL 5 MG TAB PO SCH (06:49)
[2023-12-26 12:00] VITALS: BP 119/92; TEMP 97.7; O2SAT 94
[2023-12-26 19:50] VITALS: BP 130/79; TEMP 97.6; O2SAT 96
[2023-12-27 04:46] VITALS: BP 111/86; TEMP 98.4; O2SAT 95
[2023-12-27] MEDS: DULoxetine 30MG CAPSULE (CYMBALTA) PO ONE (11:45)
[2023-12-27 12:00] VITALS: BP 116/82; TEMP 98.2; O2SAT 98
[2023-12-27] MEDS: DICLOFENAC 1% TOPICAL GEL (PATIENT'S OWN MED) TOP SCH (17:07)
[2023-12-27 20:00] VITALS: BP 122/88; TEMP 98; O2SAT 91
[2023-12-28] MEDS: traMADol 50 MG TAB PO SCH (03:30)
[2023-12-28 04:00] VITALS: BP 119/76; TEMP 97.1; O2SAT 96
[2023-12-28] MEDS: DULoxetine 30MG CAPSULE (CYMBALTA) PO SCH (09:12)
[2023-12-28 12:00] VITALS: BP 118/80; TEMP 97.7; O2SAT 98
[2023-12-28 20:00] VITALS: BP 135/90; TEMP 97.4; O2SAT 96
[2023-12-29 04:30] VITALS: BP 121/91; TEMP 97.4; O2SAT 95
[2023-12-29 12:00] VITALS: BP 121/86; TEMP 97.5; O2SAT 98
[2023-12-29 20:00] VITALS: BP 130/85; TEMP 98; O2SAT 96
[2023-12-30 04:00] VITALS: BP 137/89; TEMP 98.1; O2SAT 94
[2023-12-30 06:20] LABS: BASO % 0.7 % (0.0-1.0); EOS # 0.1 10^3/uL (0.0-0.5); HEMATOCRIT 31.6 % (36.0-47.0); HEMOGLOBIN 10.7 g/dl (12.0-15.5); LYMPH # 1.2 10^3/uL (1.5-5.0); LYMPH % 20.3 % (24.0-44.0); MEAN CORPUSCULAR HEMOGLOBIN 33.1 pg (27.0-33.0); MEAN CORPUSCULAR HGB CONC 33.9 g/dl (32.0-36.5); MEAN CORPUSCULAR VOLUME 97.8 fl (80.0-96.0); MONO # 0.7 10^3/uL (0.0-0.8); MONO % 11.9 % (2.0-8.0); NEUTROPHILS # 3.8 10^3/uL (1.5-8.5); NEUTROPHILS % 64.9 % (36.0-66.0); PLATELET COUNT, AUTOMATED 334 10^3/uL (150-450); RED BLOOD COUNT 3.23 10^6/uL (4.00-5.40); WHITE BLOOD COUNT 5.9 10^3/uL (4.0-10.0)
[2023-12-30 06:50] LABS: BLOOD UREA NITROGEN 13 MG/DL (9-23); CALCIUM LEVEL 9.7 MG/DL (8.5-10.1); CARBON DIOXIDE LEVEL 29 MMOL/L (20-31); CHLORIDE LEVEL 105 MMOL/L (98-107); CREATININE FOR GFR 0.47 MG/DL (0.55-1.30); GLOMERULAR FILTRATION RATE > 60.0 (>60); GLUCOSE, FASTING 97 MG/DL (60-100); SODIUM LEVEL 142 MMOL/L (136-145)
[2023-12-30] MEDS ORDERED: zolPIDEM TARTRATE 5 MG TAB PO PRN (10:10)
[2023-12-30] MEDS: PREGABALIN 100 MG CAP (LYRICA) PO ONE (11:06)
[2023-12-30 12:00] VITALS: BP 123/75; TEMP 97.5; O2SAT 95
[2023-12-30] MEDS: dexAMETHasone 4 MG TAB PO SCH (12:49)
[2023-12-30] MEDS: NITROFURANTOIN (MACROBID) 100 MG CAP PO ONE (12:49)
[2023-12-30 20:00] VITALS: BP 124/83; TEMP 97.6; O2SAT 94
[2023-12-30] MEDS: NITROFURANTOIN (MACROBID) 100 MG CAP PO SCH (21:33)
[2023-12-30] MEDS: PREGABALIN 100 MG CAP (LYRICA) PO SCH (21:34)
[2023-12-31 04:00] VITALS: BP 134/90; TEMP 97.6; O2SAT 95
[2023-12-31 06:28] LABS: BLOOD UREA NITROGEN 12 MG/DL (9-23); CALCIUM LEVEL 9.9 MG/DL (8.5-10.1); CARBON DIOXIDE LEVEL 25 MMOL/L (20-31); CHLORIDE LEVEL 105 MMOL/L (98-107); CREATININE FOR GFR 0.43 MG/DL (0.55-1.30); GLOMERULAR FILTRATION RATE > 60.0 (>60); GLUCOSE, FASTING 103 MG/DL (60-100); POTASSIUM SERUM 3.8 MMOL/L (3.5-5.1); SODIUM LEVEL 141 MMOL/L (136-145)
[2023-12-31 12:00] VITALS: BP 132/103; TEMP 98.1; O2SAT 94
[2023-12-31] MEDS: traMADol 50 MG TAB PO PRN (12:23)
[2023-12-31] MEDS: LIDOCAINE 4% CREAM 5GM (LMX4) TOP ONE (12:24)
[2023-12-31] MEDS: LIDOCAINE 4% CREAM 5GM (LMX4) TOP SCH (14:00)
[2023-12-31] MEDS: PREGABALIN 100 MG CAP (LYRICA) PO SCH (14:41)
[2023-12-31 20:00] VITALS: BP 125/80; TEMP 98.3; O2SAT 94
[2024-01-01 04:00] VITALS: BP 129/83; TEMP 97.3; O2SAT 93
[2024-01-01 12:00] VITALS: BP 126/80; TEMP 97.1; O2SAT 97
[2024-01-01 20:00] VITALS: BP 147/98; TEMP 97.6; O2SAT 92
[2024-01-01] MEDS: LIDOCAINE 4% CREAM 5GM (LMX4) TOP PRN (20:23)
[2024-01-02 04:00] VITALS: BP 130/100; TEMP 97.4; O2SAT 96
[2024-01-02 12:00] VITALS: BP 125/82; TEMP 97.6; O2SAT 95
[2024-01-02 19:42] VITALS: BP 137/93; TEMP 96.8; O2SAT 95
[2024-01-03 04:59] VITALS: BP 129/82; TEMP 97.2; O2SAT 94
[2024-01-03 07:13] LABS: BLOOD UREA NITROGEN 15 MG/DL (9-23); CALCIUM LEVEL 9.7 MG/DL (8.5-10.1); CARBON DIOXIDE LEVEL 26 MMOL/L (20-31); CHLORIDE LEVEL 104 MMOL/L (98-107); CREATININE FOR GFR 0.38 MG/DL (0.55-1.30); GLOMERULAR FILTRATION RATE > 60.0 (>60); GLUCOSE, FASTING 95 MG/DL (60-100); POTASSIUM SERUM 3.9 MMOL/L (3.5-5.1); SODIUM LEVEL 138 MMOL/L (136-145)
[2024-01-03 11:57] LABS: BASO % 0.3 % (0.0-1.0); EOS % 0.2 % (0.0-3.0); HEMATOCRIT 35.9 % (36.0-47.0); HEMOGLOBIN 12.3 g/dl (12.0-15.5); LYMPH # 1.3 10^3/uL (1.5-5.0); LYMPH % 9.9 % (24.0-44.0); MEAN CORPUSCULAR HEMOGLOBIN 32.9 pg (27.0-33.0); MEAN CORPUSCULAR HGB CONC 34.3 g/dl (32.0-36.5); NEUTROPHILS # 10.5 10^3/uL (1.5-8.5); NEUTROPHILS % 81.1 % (36.0-66.0); PLATELET COUNT, AUTOMATED 446 10^3/uL (150-450); RED BLOOD COUNT 3.74 10^6/uL (4.00-5.40); WHITE BLOOD COUNT 12.9 10^3/uL (4.0-10.0)
[2024-01-03 12:00] VITALS: BP 136/96; TEMP 97.6; O2SAT 96
[2024-01-03 12:25] LABS: BLOOD UREA NITROGEN 16 MG/DL (9-23); CALCIUM LEVEL 9.7 MG/DL (8.5-10.1); CARBON DIOXIDE LEVEL 26 MMOL/L (20-31); CHLORIDE LEVEL 103 MMOL/L (98-107); CREATININE FOR GFR 0.44 MG/DL (0.55-1.30); GLOMERULAR FILTRATION RATE > 60.0 (>60); GLUCOSE, FASTING 111 MG/DL (60-100); POTASSIUM SERUM 3.6 MMOL/L (3.5-5.1); SODIUM LEVEL 138 MMOL/L (136-145)
[2024-01-03] MEDS: carBAMazepine 200MG TABLET PO SCH (12:33)
[2024-01-03 20:25] VITALS: BP 136/86; TEMP 97.3; O2SAT 94
[2024-01-04 04:08] VITALS: BP 127/82; TEMP 97; O2SAT 95
[2024-01-04] MEDS ORDERED: LEXA1TAB PO (15:22)
[2024-01-04] MEDS ORDERED: GABA-1171 PO (15:22)
[2024-01-04] MEDS ORDERED: BUSP10TA PO (15:22)
[2024-01-04] MEDS ORDERED: ALPR0.25 PO (15:22)
[2024-01-04] MEDS ORDERED: GABA-1635 PO (15:22)
[2024-01-04] MEDS ORDERED: CARB20TA PO (15:22)
[2024-01-04] MEDS ORDERED: TRAM50TA2 PO (15:27)
[2024-01-04] MEDS ORDERED: HYDR-3363 PO (15:27)
[2024-01-04] MEDS ORDERED: PANT40TA29 PO (15:27)
[2024-01-04 19:51] VITALS: BP 112/68; TEMP 97; O2SAT 97
[2024-01-05 04:42] VITALS: BP 135/94; TEMP 97.6; O2SAT 96
== END 2024-01-05 11:05 | disposition home health service (06) | DRG 49 ==
LOC: M ED INP 17:51 → M PM&R 17:53
PROVIDERS: ADMIT Physical Medicine & Rehabilitation; ATTEND Physical Medicine & Rehabilitation
DX: G61.0 Guillain-Barre syndrome (principal); M34.9 Systemic sclerosis, unspecified; Z74.1 Need for assistance with personal care; Z74.09 Other reduced mobility; F41.9 Anxiety disorder, unspecified; K90.0 Celiac disease; I73.00 Raynaud's syndrome without gangrene; R00.0 Tachycardia, unspecified; R41.3 Other amnesia; R33.9 Retention of urine, unspecified; G47.00 Insomnia, unspecified; F90.9 Attention-deficit hyperactivity disorder, unspecified type; K21.9 Gastro-esophageal reflux disease without esophagitis; R26.89 Other abnormalities of gait and mobility; R49.0 Dysphonia; J45.909 Unspecified asthma, uncomplicated; Z90.49 Acquired absence of other specified parts of digestive tract; Z79.899 Other long term (current) drug therapy; Z88.1 Allergy status to other antibiotic agents; Z91.018 Allergy to other foods; Z88.0 Allergy status to penicillin

== ENCOUNTER 2024-05-17 14:50 | Outpatient (RCR) | payer BC ==
[~2024-05-17 14:50] MED LIST changes: +ALPR0.25 PO; +CALC500T60 PO; +CARB20TA PO; +COLA100C5 PO; +GABA-1171 PO; +GABA-1635 PO; +MELA3TAB30 PO; +MIRA3350 PO; +SENN-186 PO; +TRAM50TA2 PO
== END 2024-06-07 ==
LOC: M PT 14:50
PROVIDERS: ATTEND Physical Medicine & Rehabilitation
DX: G61.0 Guillain-Barre syndrome (principal)

== ENCOUNTER → 2024-09-07 | Outpatient (RCR) | payer BC | LOC: M PT 08-09 14:30 | PROVIDERS: ATTEND Family Medicine | DX: G61.0 Guillain-Barre syndrome (principal) ==

== ENCOUNTER 2024-09-13 09:58 | Outpatient (RCR) | payer BC, OTHER | END 2024-10-08 | LOC: M PT 09:58 | PROVIDERS: ATTEND Family Medicine | DX: G61.0 Guillain-Barre syndrome (principal) ==

== ENCOUNTER → 2024-11-07 | Outpatient (RCR) | payer BC | LOC: M PT 11-02 14:56 | PROVIDERS: ATTEND Family Medicine | DX: G61.0 Guillain-Barre syndrome (principal) ==

== ENCOUNTER 2024-12-06 15:00 | Outpatient (RCR) | payer BC | END 2024-12-08 | LOC: M PT 15:00 | PROVIDERS: ATTEND Family Medicine | DX: G61.0 Guillain-Barre syndrome (principal) ==

== ENCOUNTER 2025-01-03 12:00 | Outpatient (RCR) | payer BC | END 2025-01-07 | LOC: M PT 12:00 | PROVIDERS: ATTEND Family Medicine | DX: G61.0 Guillain-Barre syndrome (principal) ==

== ENCOUNTER 2025-02-05 12:00 | Outpatient (RCR) | payer BC | END 2025-02-07 | LOC: M PT 12:00 | PROVIDERS: ATTEND Family Medicine | DX: G61.0 Guillain-Barre syndrome (principal) ==